=== PATIENT | male | born 1960 | race Caucasian/White ===

== ENCOUNTER 2023-05-03 15:26 | Inpatient (IN) | payer OTHER ==
[~2023-05-03] VITALS: Ht 175.3 cm; Wt 81.6 kg
[2023-05-03 18:40] LABS: BASOPHILS % (AUTO) 0.8 % (0.0-2.0); EOSINOPHILS # (AUTO) 0.2 K/uL (0.0-0.7); EOSINOPHILS % (AUTO) 8.4 % (0.0-6.0); HEMATOCRIT 25 % (39-51); HEMOGLOBIN 8.5 g/dL (13.5-17.5); LYMPHOCYTES # (AUTO) 0.6 K/uL (0.8-4.8); LYMPHOCYTES % (AUTO) 30.2 % (20.0-44.0); MEAN CORPUSCULAR HEMOGLOBIN 33 PG (26.0-33.0); MEAN CORPUSCULAR HGB CONC 34 g/dl (31.0-36.0); MEAN CORPUSCULAR VOLUME 97 fL (80-96); MONOCYTES # (AUTO) 0.3 K/uL (0.1-1.30); MONOCYTES % (AUTO) 15.8 % (2.0-12.0); NEUTROPHILS # (AUTO) 0.8 K/uL (1.8-8.9); NEUTROPHILS % (AUTO) 44.8 % (43.0-81.0); RED BLOOD CELL COUNT(AUTO) 2.63 MIL/uL (4.5-6.0); RED CELL DISTRIBUTION WIDTH 16.6 % (11.5-15.0)
[2023-05-03 18:43] LABS: PLATELET COUNT (AUTO) 47 K/uL (150-450); WHITE BLOOD COUNT (AUTO) 1.8 K/uL (4.3-11.0)
[2023-05-03 18:53] LABS: INR 1.4 (0.91-1.10); PARTIAL THROMBOPLASTIN TIME 35.3 SEC (24.3-34.3); PROTHROMBIN TIME 14.4 SECS (9.2-11.1)
[2023-05-03 18:55] LABS: ALBUMIN 2.3 g/dL (3.4-5.0); BILIRUBIN,DIRECT 0.3 mg/dL (0.0-0.2); BILIRUBIN,TOTAL 0.7 mg/dL (0.2-1.0); CALCIUM, SERUM 8.5 mg/dL (8.5-10.1); CREATININE 0.6 mg/dL (0.6-1.3); POTASSIUM 4.2 mmol/L (3.5-5.1)
[2023-05-03] MEDS ORDERED: IV NS 0.9% 250 ML IV ONE (19:23)
[2023-05-03] MEDS ORDERED: IOHEXOL-300 100 ML VIAL IV ONE (19:23)
[2023-05-03 19:47] LABS: APPEARANCE,URINE CLEAR (CLEAR); BILIRUBIN,URINE NEGATIVE (NEGATIVE); BLOOD, URINE NEGATIVE Ery/uL (NEGATIVE); COLOR,URINE ORANGE (YELLOW); KETONES,URINE TRACE mg/dL (NEGATIVE); LEUKOCYTE ESTERASE ,URINE NEGATIVE (NEGATIVE); NITRITE, URINE NEGATIVE (NEGATIVE); PROTEIN,URINE NEGATIVE (NEGATIVE); UGLUCOSE NEGATIVE (NEGATIVE)
[2023-05-03 20:40] LABS: ADD URINE CULTURE NO; BACTERIA,URINE Few /HPF (None Seen); RBC,URINE 0-2 /HPF (0-2); SQUAMOUS EPITHELIAL CELL,UR None Seen /HPF (None Seen); WBC,URINE 0-2 /HPF (0-3)
[2023-05-03 20:46] LABS: EOSINOPHILS % (MANUAL) 4 % (0-4); LYMPHOCYTES % (MANUAL) 32 % (16-48); MONOCYTES % (MANUAL) 20 % (0-11.0); NEUTROPHILS % (MANUAL) 44 (42-76); PLATELET ESTIMATE DECREASED
[2023-05-03 22:30] VITALS: BP 117/69; TEMP 98.2; O2SAT 96
[2023-05-03] MEDS: PANTOPRAZOLE 40 MG VIAL IV SCH (23:50)
[2023-05-04] MEDS ORDERED: ACETAMINOPHEN 325 MG TABLET PO PRN
[2023-05-04] MEDS ORDERED: ONDANSETRON HCL/PF 4 MG/2 ML VIAL IVP PRN
[2023-05-04] MEDS ORDERED: MORPHINE SULFATE INJ 2 MG/ML DISP.SYRIN IV PRN
[2023-05-04] MEDS ORDERED: LORAZEPAM INJ 2 MG/ML VIAL IV PRN
[2023-05-04 06:05] LABS: BASOPHILS % (AUTO) 0.9 % (0.0-2.0); EOSINOPHILS # (AUTO) 0.2 K/uL (0.0-0.7); EOSINOPHILS % (AUTO) 9.9 % (0.0-6.0); HEMATOCRIT 26 % (39-51); LYMPHOCYTES # (AUTO) 0.5 K/uL (0.8-4.8); LYMPHOCYTES % (AUTO) 26.1 % (20.0-44.0); MEAN CORPUSCULAR HEMOGLOBIN 33 PG (26.0-33.0); MEAN CORPUSCULAR HGB CONC 35 g/dl (31.0-36.0); MEAN CORPUSCULAR VOLUME 95 fL (80-96); MONOCYTES # (AUTO) 0.4 K/uL (0.1-1.30); MONOCYTES % (AUTO) 18.4 % (2.0-12.0); NEUTROPHILS # (AUTO) 0.9 K/uL (1.8-8.9); NEUTROPHILS % (AUTO) 44.7 % (43.0-81.0); RED BLOOD CELL COUNT(AUTO) 2.75 MIL/uL (4.5-6.0)
[2023-05-04 06:08] LABS: PLATELET COUNT (AUTO) 46 K/uL (150-450)
[2023-05-04 06:30] LABS: CALCIUM, SERUM 8.5 mg/dL (8.5-10.1); CREATININE 0.5 mg/dL (0.6-1.3); MAGNESIUM 1.8 mg/dL (1.8-2.4); PHOSPHORUS 4.1 mg/dL (2.5-4.9); POTASSIUM 3.9 mmol/L (3.5-5.1)
[2023-05-04] MEDS ORDERED: CHOL200059 PO (08:20)
[2023-05-04] MEDS ORDERED: DOCU250C14 PO (08:20)
[2023-05-04] MEDS ORDERED: SENN-261 PO (08:20)
[2023-05-04] MEDS ORDERED: MAGN400O6 PO (08:20)
[2023-05-04] MEDS ORDERED: FAMO-131 PO (08:20)
[2023-05-04] MEDS ORDERED: AMIN887L7 PO (08:20)
[2023-05-04] MEDS ORDERED: IBUP-76 PO (08:20)
[2023-05-04] MEDS ORDERED: ACET-868 PO (08:20)
[2023-05-04] MEDS ORDERED: SPIR25TA PO (08:20)
[2023-05-04] MEDS ORDERED: FOLI0.8T3 PO (08:20)
[2023-05-04] MEDS ORDERED: THIA100T88 PO (08:20)
[2023-05-04] MEDS ORDERED: MULT-213 PO (08:20)
[2023-05-04] MEDS ORDERED: LACT10SO3 PO (08:20)
[2023-05-04] MEDS ORDERED: FERR325T23 PO (08:20)
[2023-05-04] MEDS ORDERED: ASCO-340 PO (08:20)
[2023-05-04] MEDS ORDERED: DIPH25TA25 PO (08:20)
[2023-05-04] MEDS ORDERED: POLY17PO4 PO (08:20)
[2023-05-04 08:25] VITALS: BP 101/66; TEMP 97.8; O2SAT 98
[2023-05-04] MEDS: FOLIC ACID 1 MG TABLET PO SCH (08:39)
[2023-05-04] MEDS: THIAMINE HCL 100 MG TABLET PO SCH (08:39)
[2023-05-04] MEDS: PANTOPRAZOLE 40 MG VIAL IV SCH (08:54)
[2023-05-04] MEDS ORDERED: FUROSEMIDE 20 MG/2 ML VIAL IV STA (12:10)
[2023-05-04 12:50] LABS: ANISOCYTOSIS 1+; BASOPHILS % (MANUAL) 0 % (0.0-2.0); EOSINOPHILS % (MANUAL) 6 % (0-4); LYMPHOCYTES % (MANUAL) 24 % (16-48); MONOCYTES % (MANUAL) 15 % (0-11.0); NEUTROPHILS % (MANUAL) 55 (42-76); PLATELET ESTIMATE DECREASED
[2023-05-04 15:59] VITALS: BP 98/52; TEMP 98.1; O2SAT 100
[2023-05-04 20:00] VITALS: BP 126/90; TEMP 98.4; O2SAT 95
[2023-05-05] MEDS ORDERED: IBUPROFEN 400 MG TABLET PO PRN (00:30)
[2023-05-05] MEDS ORDERED: SPIRONOLACTONE 25 MG TABLET PO SCH (07:00)
[2023-05-05 08:00] VITALS: BP 104/66; TEMP 97.9; O2SAT 64
[2023-05-05] MEDS ORDERED: PANTOPRAZOLE 40 MG TABLET.DR PO SCH (09:00)
[2023-05-05 09:16] LABS: BASOPHILS % (AUTO) 0.8 % (0.0-2.0); EOSINOPHILS # (AUTO) 0.2 K/uL (0.0-0.7); EOSINOPHILS % (AUTO) 8.9 % (0.0-6.0); HEMATOCRIT 29 % (39-51); HEMOGLOBIN 9.9 g/dL (13.5-17.5); LYMPHOCYTES # (AUTO) 0.5 K/uL (0.8-4.8); MEAN CORPUSCULAR HEMOGLOBIN 33 PG (26.0-33.0); MEAN CORPUSCULAR HGB CONC 34 g/dl (31.0-36.0); MEAN CORPUSCULAR VOLUME 96 fL (80-96); MONOCYTES # (AUTO) 0.2 K/uL (0.1-1.30); MONOCYTES % (AUTO) 10.6 % (2.0-12.0); NEUTROPHILS % (AUTO) 52.7 % (43.0-81.0); RED BLOOD CELL COUNT(AUTO) 3.04 MIL/uL (4.5-6.0); RED CELL DISTRIBUTION WIDTH 16.3 % (11.5-15.0)
[2023-05-05 09:33] LABS: PLATELET COUNT (AUTO) 49 K/uL (150-450); WHITE BLOOD COUNT (AUTO) 1.9 K/uL (4.3-11.0)
[2023-05-05 09:47] LABS: CALCIUM, SERUM 8.6 mg/dL (8.5-10.1); CREATININE 0.7 mg/dL (0.6-1.3); MAGNESIUM 1.6 mg/dL (1.8-2.4); PHOSPHORUS 3.9 mg/dL (2.5-4.9); POTASSIUM 3.6 mmol/L (3.5-5.1)
[2023-05-05] MEDS: THIAMINE HCL 100 MG TABLET PO SCH (10:00)
[2023-05-05] MEDS: FOLIC ACID 1 MG TABLET PO SCH (10:01)
[2023-05-05] MEDS ORDERED: MAGNESIUM OXIDE 400 MG TABLET PO SCH (11:30)
[2023-05-05 13:37] LABS: ANISOCYTOSIS 1+; BASOPHILS % (MANUAL) 0 % (0.0-2.0); EOSINOPHILS % (MANUAL) 4 % (0-4); LYMPHOCYTES % (MANUAL) 24 % (16-48); MONOCYTES % (MANUAL) 9 % (0-11.0); NEUTROPHILS % (MANUAL) 63 (42-76); PLATELET ESTIMATE DECREASED
== END 2023-05-05 15:40 | DRG 280 ==
LOC: ER 15:30 → MED 22:03
PROVIDERS: ADMIT Nurse Practitioner Acute Care; ATTEND Internal Medicine
DX: K70.31 Alcoholic cirrhosis of liver with ascites (principal); D61.818 Other pancytopenia; K76.6 Portal hypertension; E44.0 Moderate protein-calorie malnutrition; E88.09 Other disorders of plasma-protein metabolism, not elsewhere classified; F10.10 Alcohol abuse, uncomplicated; Y90.9 Presence of alcohol in blood, level not specified; I86.8 Varicose veins of other specified sites; R16.1 Splenomegaly, not elsewhere classified; Z86.16 Personal history of COVID-19; Z68.26 Body mass index [BMI] 26.0-26.9, adult
CPT/HCPCS: 36415; 80048-TC; 80061-TC; 80076-TC; 81001; 83690-TC; 83735-TC; 84100-TC; 85025-TC; 85730-TC; A4223; C9113; G0378; J1940; J7050; Q9967